=== PATIENT | male | born 1970 | race Caucasian/White ===

== ENCOUNTER 2016-08-16 04:06 | Emergency (ER) | payer OTHER ==
--- NOTE | 2016-08-16 05:35 | ED CLINICAL REPORT ---
Clinical Report - Physicians/Mid Levels Formerly [facility] [address] [place] [address] 08/16/2016 4:07 [id number] Ar[facility]- By private vehicle. Historian- patient. HISTORY OF PRESENT ILLNESS Chief Complaint: SORE THROAT. This started past several days and is still present (staying the same). It was abrupt in onset and has been constant but is not gone now. The illness is described as moderate. No difficulty breathing, chest discomfort or pain, fever or chills. He has had a sore throat and nasal congestion. Additional history - No known contact with a sick individual. No recent travel. (reports n/v/d as well). Similar symptoms previously: None. Recent medical care: Not recently seen/assessed. REVIEW OF SYSTEMS No skin rash. All systems otherwise negative, except as recorded above. PAST HISTORY See nurses notes. SOCIAL HISTORY Smoker- current status unknown. History of drug use: marijuana. No alcohol use. No recent travel. Is a local resident. ADDITIONAL NOTES The nursing notes have been reviewed. PHYSICAL EXAM Vital Signs: 08/16/2016 04:15 BP: 191/92. HR: 77. RR: 16. O2 saturation: 99%. Temp: 98.6 F. Blood pressure normal. Oxygen saturation normal. Appearance: Alert. No acute distress. Eyes: Pupils equal, round and reactive to light. Eyes normal inspection. ENT: Ears normal. Nose normal. Pharynx normal. Uvula midline. (no papilledema. Normal-appearing retinal vasculature.). Neck: Normal inspection. Neck supple. CVS: Normal heart rate and rhythm. Heart sounds normal. Pulses normal. Respiratory: No respiratory distress. Breath sounds normal. Abdomen: Soft and nontender. No organomegaly. Back: Normal inspection. Skin: Skin warm and dry. Normal skin color. No rash. Normal skin turgor. Extremities: Extremities exhibit normal ROM. No lower extremity edema. LABS, X-RAYS, AND EKG Laboratory Tests: Culture, Strep Screen: (DEVONTE: 08/16/2016 04:30) ( MsgRcvd 08/18/2016 08:27) Final results Test Result Flag Units (Reference) RAPID STREP SCREEN - THROAT CALLED TO: NA -- DATE: 08/16/16 NEGATIVE SCREEN: RAPID STREP SCREEN NEGATIVE; CONFIRMATION TO FOLLOW . DATE: 08/18/16 NO BETA STREP ISOLATED: NO BETA STREP ISOLATED . PROGRESS AND PROCEDURES Course of Care: the patient is a pleasant 45 -year-old male presenting for evaluation of sore throat, nausea, vomiting, and Symptoms at this time are likely viral in nature. We will obtain a rapid strep test for evaluation of possible streptococcal pharyngitis. Patient's abdominal exam is benign. Do not feel laboratory studies her CT scan/other imaging would be warranted at this time. patient is nontoxic and in no acute distress. Patient is agreeable to treatment plan. Patient's workup forrapid strep is noted to be negative. Had discussion with patient in regards to his workup here in the emergency department and possibly a contact in several days for the culture results. Patient expressed understanding of these instructions. Discussed with patient workup, diagnosis, home care, follow-up, and return precautions including medication. Cautions answered. The patient expressed understanding of these instructions and was agreeable to them. repeat examination continues to be benign. Do not feel patient needs to be admitted to the hospital or require further emergency department workup. Patient is a follow-up with his primary care doctor in regards to his hypertension. No signs of end organ damage. CLINICAL IMPRESSION 08/16/2016 04:15 BP: 191/92. HR: 77. RR: 16. O2 saturation: 99%. Temp: 98.6 F. Hypertensive. Oxygen saturation normal. Acute viral syndrome Essential hypertension. INSTRUCTIONS Warnings: GENERAL WARNINGS: Return or contact your physician immediately if your condition worsens or changes unexpectedly, if not improving as expected, or if other problems arise. Specifically return if pain, vomiting, bleeding, breathing difficulty or fever. Your Current Medications: CONTINUE TAKING THE FOLLOWING MEDICATIONS: Glargine Insulin. Losartan Potassium Oral. MetFORMIN HCl Oral. Prescription Medications: Phenergan w/ Codeine 10mg / 6.25mg per 5 mL: take 1-2 teaspoons as needed for cough. Dispense sixty (60) mL. No refill. Substitution is permissible. (at bedtime only) OTC Medications: Acetaminophen (available over the counter): take according to label instructions. Motrin (available over the counter): take according to label instructions. Claritin 10 mg (available over the counter): take 1 tablet orally every 12 hours as needed for congestion. Dispense twenty (20). No refill. Substitution is permissible. Follow-up: Return to the emergency department as needed. Follow up with your doctor in three days. Reason for referral: recheck today's concerns. Summary of care provided to patient via paper. Screening today revealed the patient's blood pressure to be in the normal range. The patient should follow up with a primary care provider for blood pressure management. Understanding of the discharge instructions verbalized by patient. (Electronically signed by Jeremiah Pinto Dr. 08/22/2016 23:22)
--- NOTE | 2016-08-16 05:35 | ED NURSING NOTES ---
Clinical Report - Nurses [facility] [address] [place] [address] 08/16/2016 4:07 Patient: RAMANA MCLEAN TRIAGE Triage time 0415. Acuity: LEVEL 3. Chief Complaint: NAUSEA, VOMITING and DIARRHEA. --04:21 Ricky Austin R.N. 04:15 08/16/16. BP: 191/92. HR: 77. RR: 16. O2 saturation: 99%. Temp: 98.6 F. Pain level now 0/10. --04:21 Ricky Austin R.N. Weight: 101.6 kg stated. Height/Length: 71 inches Per Patient. BMI: 31.3. --04:18 Ricky Austin R.N. Medications MetFORMIN HCl Oral. --04:16 Ricky Austin R.N. Losartan Potassium Oral. --04:16 Ricky Austin R.N. Glargine Insulin. --04:16 Ricky Austin R.N. Allergies No Known Drug Allergy. --04:17 Ricky Austin R.N. History Arrived by private vehicle. Historian: patient. Unaccompanied. Onset. (3 days ago). He has had nausea, vomiting and diarrhea. Last oral intake by patient was (about 4 hours ago). Treatment MEAT PUMPER: (cough drops). SOCIAL HX: Heavy tobacco smoker- 1 pack per day. History of heavy drug use: marijuana. FALL RISK ASSESSMENT: Fall risk assessment completed. No fall risk identified. NUTRITIONAL RISK ASSESSMENT: The nutritional risk assessment revealed no deficiencies. FUNCTIONAL ASSESSMENT: Functional assessment: no impairments noted. LEARNING NEEDS ASSESSMENT: The learning needs assessment revealed no barriers. SKIN INTEGRITY ASSESSMENT: Skin integrity risk assessment completed. No skin integrity risk identified. --04:21 Ricky Austin R.N. PROBLEMS: Gastritis. Abdominal Pain. Back Pain. Sinusitis. Bronchitis. Pharyngitis. Diabetes Mellitus. Hypertension. --04:17 Ricky Austin R.N. ADDITIONAL SURGERIES: Appendectomy. Back Surgery. Cholecystectomy. --04:17 Ricky Austin R.N. Interventions ID band on patient. --04:21 Ricky Austin R.N. PHYSICAL ASSESSMENT Ambulatory to room. GENERAL / NEURO / PSYCH: Alert. Oriented X 4. HEENT: Mucous membranes are pink. RESPIRATORY: Respirations not labored. Breath sounds within normal limits. CVS: Capillary refill less than 2 seconds. GI / : Abdomen soft and nontender. SKIN: Skin is warm and dry. --04:22 Ricky Austin R.N. NURSING PROGRESS NOTES Head of bed elevated. Reassurance given. Patient identifiers checked. Call light placed in reach. Bed placed in lowest position. Brakes of bed on. --: Ricky Austin R.N. DISPOSITION / DISCHARGE Departure time: 0550. Condition at departure: improved. No learning barriers present. Discharge instructions provided and reviewed with the patient. Reviewed warnings. Reviewed medication(s). Treatments reviewed. Reviewed diet. Patient verbalized understanding. Written instructions provided in Icelandic. The patient was discharged by the physician. He was discharged home and unaccompanied at time of discharge. He left the Emergency Department ambulatory and via private vehicle. Patient driving. --05:51 Ricky Austin R.N. 05:49 08/16/16. BP: 189/88. HR: 68. RR: 16. O2 saturation: 98%. Temp: 98.6 F. Pain level now 0/10. --05:51 Ricky Austin R.N. Locked/Released at 08/16/2016 5:51 by Ricky Austin R.N.
--- NOTE | 2016-08-16 05:35 | ED NURSING NOTES ---
Clinical Report - Nurses [facility] [address] [place] [address] 08/16/2016 4:07 Patient: RAMANA MCLEAN TRIAGE Triage time 0415. Acuity: LEVEL 3. Chief Complaint: NAUSEA, VOMITING and DIARRHEA. --04:21 Ricky Austin R.N. 04:15 08/16/16. BP: 191/92. HR: 77. RR: 16. O2 saturation: 99%. Temp: 98.6 F. Pain level now 0/10. --04:21 Ricky Austin R.N. Weight: 101.6 kg stated. Height/Length: 71 inches Per Patient. BMI: 31.3. --04:18 Ricky Austin R.N. Medications MetFORMIN HCl Oral. --04:16 Ricky Austin R.N. Losartan Potassium Oral. --04:16 Ricky Austin R.N. Glargine Insulin. --04:16 Ricky Austin R.N. Allergies No Known Drug Allergy. --04:17 Ricky Austin R.N. History Arrived by private vehicle. Historian: patient. Unaccompanied. Onset. (3 days ago). He has had nausea, vomiting and diarrhea. Last oral intake by patient was (about 4 hours ago). Treatment COMB FIXER: (cough drops). SOCIAL HX: Heavy tobacco smoker- 1 pack per day. History of heavy drug use: marijuana. FALL RISK ASSESSMENT: Fall risk assessment completed. No fall risk identified. NUTRITIONAL RISK ASSESSMENT: The nutritional risk assessment revealed no deficiencies. FUNCTIONAL ASSESSMENT: Functional assessment: no impairments noted. LEARNING NEEDS ASSESSMENT: The learning needs assessment revealed no barriers. SKIN INTEGRITY ASSESSMENT: Skin integrity risk assessment completed. No skin integrity risk identified. --04:21 Ricky Austin R.N. PROBLEMS: Gastritis. Abdominal Pain. Back Pain. Sinusitis. Bronchitis. Pharyngitis. Diabetes Mellitus. Hypertension. --04:17 Ricky Austin R.N. ADDITIONAL SURGERIES: Appendectomy. Back Surgery. Cholecystectomy. --04:17 Ricky Austin R.N. Interventions ID band on patient. --04:21 Ricky Austin R.N. PHYSICAL ASSESSMENT Ambulatory to room. GENERAL / NEURO / PSYCH: Alert. Oriented X 4. HEENT: Mucous membranes are pink. RESPIRATORY: Respirations not labored. Breath sounds within normal limits. CVS: Capillary refill less than 2 seconds. GI / : Abdomen soft and nontender. SKIN: Skin is warm and dry. --04:22 Ricky Austin R.N. NURSING PROGRESS NOTES Head of bed elevated. Reassurance given. Patient identifiers checked. Call light placed in reach. Bed placed in lowest position. Brakes of bed on. --: Ricky Austin R.N. DISPOSITION / DISCHARGE Departure time: 0550. Condition at departure: improved. No learning barriers present. Discharge instructions provided and reviewed with the patient. Reviewed warnings. Reviewed medication(s). Treatments reviewed. Reviewed diet. Patient verbalized understanding. Written instructions provided in Pashto. The patient was discharged by the physician. He was discharged home and unaccompanied at time of discharge. He left the Emergency Department ambulatory and via private vehicle. Patient driving. --05:51 Ricky Austin R.N. 05:49 08/16/16. BP: 189/88. HR: 68. RR: 16. O2 saturation: 98%. Temp: 98.6 F. Pain level now 0/10. --05:51 Ricky Austin R.N. Locked/Released at 08/16/2016 5:51 by Ricky Austin R.N.
--- NOTE | 2016-08-16 05:35 | ED ORDER SUMMARY ---
..... Patient: RAMANA MCLEAN OrderSheet [facility] VisitID: [id number] [address] [place] [address] 45y, M Registration Date/Time: 08/16/2016 ORDER SHEET Weight: 101.6 kg (stated) Allergies: No Known Drug Allergy GENERAL ORDERS: Culture, Strep Screen Urgent (05:07 08/16/2016 Kiko Becektt) (Ack 5:10 [facility] Horse Breaker) (5:10 [facility] Horse Breaker) MEDICATION ORDERS: IV FLUIDS: ORDER SHEET NOTES: [Electronically signed by Ricky Austin R.N. (05:51 08/16/2016)] [Electronically signed by Jeremiah Pinto Dr. (23:22 08/22/2016)] [Electronically locked/signed by Ricky Austin R.N. (05:51 08/16/2016)]
--- NOTE | 2016-08-16 05:35 | ED ORDER SUMMARY ---
..... Patient: RAMANA MCLEAN OrderSheet [facility] VisitID: [id number] [address] [place] [address] 45y, M Registration Date/Time: 08/16/2016 ORDER SHEET Weight: 101.6 kg (stated) Allergies: No Known Drug Allergy GENERAL ORDERS: Culture, Strep Screen Urgent (05:07 08/16/2016 Kiko Beckett) (Ack 5:10 [facility] Maintenance Equipment Operator) (5:10 [facility] ER Maintenance Equipment Operator) MEDICATION ORDERS: IV FLUIDS: ORDER SHEET NOTES: [Electronically signed by Ricky Austin R.N. (05:51 08/16/2016)] [Electronically signed by Jeremiah Pinto Dr. (23:22 08/22/2016)] [Electronically locked/signed by Ricky Austin R.N. (05:51 08/16/2016)]
--- NOTE | 2016-08-22 23:22 | ED MAR SUMMARY ---
..... Medication Administration Record [facility] [address] [place], [place] [id number] Patient: RAMANA MCLEAN Visit ID: [id number] 45y, M Weight: 101.6 kg Height/Length: 71 in BMI: 31.3 ALLERGIES: No Known Drug Allergy
--- NOTE | 2016-08-22 23:22 | ED MED RECONCILIATION SUMMARY ---
Patient: RAMANA MCLEAN Medication Reconciliation Report [facility] VisitID: [id number] [address] [place] [address] 45y, M Registration Date/Time: 08/16/2016 Weight: 101.6 kg Height/Length: 71 in. BMI: 31.3 ALLERGIES: No Known Drug Allergy The patient's Home Medications are listed below: CONTINUE TAKING THE FOLLOWING MEDICATIONS: Glargine Insulin Losartan Potassium Oral MetFORMIN HCl Oral The source(s) of the original Home Medication information: Not obtained. The following Medications were given to the patient in the Emergency Department: None. The following Medications were prescribed to the patient: Acetaminophen (available over the counter): take according to label instructions. -- Jeremiah Pinto Dr. Motrin (available over the counter): take according to label instructions. -- Jeremiah Pinto Dr. Phenergan w/ Codeine 10mg / 6.25mg per 5 mL: take 1-2 teaspoons as needed for cough. Dispense sixty (60) mL. No refill. Substitution is permissible.(at bedtime only) -- Jeremiah Pinto Dr. Claritin 10 mg (available over the counter): take 1 tablet orally every 12 hours as needed for congestion. Dispense twenty (20). No refill. Substitution is permissible. -- Jeremiah Pinto Dr.
--- NOTE | 2016-08-22 23:22 | ED DISCHARGE INSTRUCTIONS ---
Patient: RAMANA MCLEAN General Instructions [facility] VisitID: [id number] [place] [address] 45y, M Registration Date/Time: 08/16/2016 08/16/2016 04:15 BP: 191/92. HR: 77. RR: 16. O2 saturation: 99%. Temp: 98.6 F. Hypertensive. Oxygen saturation normal. Acute viral syndrome Essential hypertension. INSTRUCTIONS Warnings: GENERAL WARNINGS: Return or contact your physician immediately if your condition worsens or changes unexpectedly, if not improving as expected, or if other problems arise. Specifically return if pain, vomiting, bleeding, breathing difficulty or fever. Your Current Medications: CONTINUE TAKING THE FOLLOWING MEDICATIONS: Glargine Insulin. Losartan Potassium Oral. MetFORMIN HCl Oral. Prescription Medications: Phenergan w/ Codeine 10mg / 6.25mg per 5 mL: take 1-2 teaspoons as needed for cough. Dispense sixty (60) mL. No refill. Substitution is permissible. (at bedtime only) OTC Medications: Acetaminophen (available over the counter): take according to label instructions. Motrin (available over the counter): take according to label instructions. Claritin 10 mg (available over the counter): take 1 tablet orally every 12 hours as needed for congestion. Dispense twenty (20). No refill. Substitution is permissible. Follow-up: Return to the emergency department as needed. Follow up with your doctor in three days. Reason for referral: recheck today's concerns. Summary of care provided to patient via paper. Screening today revealed the patient's blood pressure to be in the normal range. The patient should follow up with a primary care provider for blood pressure management. Understanding of the discharge instructions verbalized by patient. ADDITIONAL INFORMATION Viral Syndrome (Adult) A viral illness may cause a number of symptoms. The symptoms depend on the part of the body that the virus affects. If it settles in the nose, throat, and lungs, it may cause cough, sore throat, congestion, and sometimes headache. If it settles in the stomach and intestinal tract, it may cause vomiting and diarrhea. Sometimes it causes vague symptoms like "aching all over," feeling tired, loss of appetite, or fever. A viral illness usually lasts1 to 2 weeks, but sometimes it lasts longer. In some cases, a more serious infection can look like a viral syndrome in the first few days of the illness. You may need anotherexam and additional teststo know the difference.Watch for the warning signs listed below. Home care Follow these guidelines for taking care of yourself at home: If symptoms are severe, rest at home for the first 2 to 3 days. Stay away from cigarette smoke - both your smoke and the smoke from others. You may useacetaminophen or ibuprofen for fever, muscle aching, and headache, unless another medicine was prescribed for this.If you have chronic liver or kidney disease or ever had a stomach ulcer or GI bleeding, talk with your doctor before using these medicinesNo one who is younger than 18 and ill with a fever should take aspirin. It may cause severe liver damage. Your appetite may be poor, so a light diet is fine. Avoid dehydration by drinking 8 to 12 8-ounce glasses of fluids each day. This may include water; orange juice; lemonade; apple, grape, and cranberry juice; clear fruit drinks; electrolyte replacement and sports drinks; and decaffeinated teas and coffee. If you have been diagnosed with a kidney disease, ask your doctor how much and what types of fluids you should drink to prevent dehydration. If you have kidney disease, drinking too much fluid can cause it build up in the your body and be dangerous to your health. Mskn-ddu-iibwkex remedies won't shorten the length of the illness but may be helpful forcough, sore throat; and nasal and sinus congestion. Don't use decongestants if you have high blood pressure. Follow-up care Follow up with your health care provider if you do not improve over the next week. When to seek medical care Get prompt medical attention if any of these occur: Cough with lots of colored sputum (mucus) or blood in your sputum Chest pain, shortness of breath, wheezing, or difficulty breathing Severe headache; face, neck, or ear pain Severe, constant pain in the lower right side of your belly (abdominal) Continued vomiting (cant keep liquids down) Frequent diarrhea (more than 5 times a day); blood (red or black color) or mucus in diarrhea Feeling weak, dizzy, or like you are going to faint Extreme thirst Fever of 100.4 F (38 C) oral or higher, not better with fever medication Convulsion High Blood Pressure -- To Be Confirmed [No Tx] Your blood pressure was higher today than normal. Sometimes anxiety or pain can cause a temporary rise in blood pressure that later returns to normal. If your blood pressure is high on one measurement, this does not mean that you have hypertension (a chronic illness). However, you must have your blood pressure measured again within the next few days to find out if its still high. A normal blood pressure is 120/80 or less. The first (top) number is the "systolic" pressure. The second (bottom) number is the "diastolic" pressure. Hypertension exists when either the top number is 140 or higher, OR the bottom number is 90 or higher on repeated measurements. Blood pressure in the range of 120-140 (systolic) or 80-89 (diastolic) is considered "pre-hypertension". This means your are at risk for getting hypertension. You should have regular blood pressure checks to be sure your blood pressure is not rising. Home Care: Measure your blood pressure on 3 different days and write down the results. This can be done at your doctor's office or this facility. Some pharmacies and grocery stores offer automated blood pressure machines for your use. Follow Up: If your blood pressure is "high" (over 120/80) on 2 out of 3 days, you will need to follow up with your doctor for further evaluation and treatment. DO NOT PUT THIS OFF! Untreated high blood pressure increases the risk for heart attack, also known as acute myocardial infarction, or AMI, and stroke. It is a treatable condition. Get Prompt Medical Attention if any of the following occur: Chest pain or shortness of breath Severe headache Throbbing or rushing sound in the ears Nosebleed Sudden severe abdominal pain Extreme drowsiness, confusion or fainting Dizziness or vertigo (dizziness with spinning sensation) Weakness of an arm or leg or one side of the face Difficulty with speech or vision Loratadine Oral tablet, extended release 24 hour What is this medicine? LORATADINE (martin AT a mindi) is an antihistamine. It helps to relieve sneezing, runny nose, and itchy, watery eyes. This medicine is used to treat the symptoms of allergies. It is also used to treat itchy skin rash and hives. How should I use this medicine? Take this medicine by mouth with a glass of water. Follow the directions on the label. You may take this medicine with food or on an empty stomach. Take your medicine at regular intervals. Do not take your medicine more often than directed. Talk to your administrative sales assistant regarding the use of this medicine in children. While this medicine may be used in children as young as 6 years for selected conditions, precautions do apply. What side effects may I notice from receiving this medicine? Side effects that you should report to your doctor or health primary care coordinator as soon as possible: allergic reactions like skin rash, itching or hives, swelling of the face, lips, or tongue breathing problems unusually restless or nervous Side effects that usually do not require medical attention (report to your doctor or health primary care coordinator if they continue or are bothersome): drowsiness dry or irritated mouth or throat headache What may interact with this medicine? other medicines for colds or allergies What if I miss a dose? If you miss a dose, take it as soon as you can. If it is almost time for your next dose, take only that dose. Do not take double or extra doses. Where should I keep my medicine? Keep out of the reach of children. Store at room temperature between 2 and 30 degrees C (36 and 86 degrees F). Protect from moisture. Throw away any unused medicine after the expiration date. What should I tell my health care provider before I take this medicine? They need to know if you have any of these conditions: asthma kidney disease liver disease an unusual or allergic reaction to loratadine, other antihistamines, other medicines, foods, dyes, or preservatives or trying to get breast-feeding What should I watch for while using this medicine? Tell your doctor or healthcare professional if your symptoms do not start to get better or if they get worse. Your mouth may get dry. Chewing sugarless gum or sucking hard candy, and drinking plenty of water may help. Contact your doctor if the problem does not go away or is severe. You may get drowsy or dizzy. Do not drive, use machinery, or do anything that needs mental alertness until you know how this medicine affects you. Do not stand or sit up quickly, especially if you are an older patient. This reduces the risk of dizzy or fainting spells. You have been given the following additional information: Viral Syndrome (Adult) Hypertension, To Be Confirmed Loratadine Oral tablet, extended release 24 hour (Electronically signed by Jeremiah Pinto Dr. 08/22/2016 23:22)
--- NOTE | 2016-08-22 23:22 | ED MAR SUMMARY ---
..... Medication Administration Record [facility] [address] [place], [place] [id number] Patient: RAMANA MCLEAN Visit ID: [id number] 45y, M Weight: 101.6 kg Height/Length: 71 in BMI: 31.3 ALLERGIES: No Known Drug Allergy
--- NOTE | 2016-08-22 23:22 | ED MED RECONCILIATION SUMMARY ---
Patient: RAMANA MCLEAN Medication Reconciliation Report [facility] VisitID: [id number] [address] [place] [address] 45y, M Registration Date/Time: 08/16/2016 Weight: 101.6 kg Height/Length: 71 in. BMI: 31.3 ALLERGIES: No Known Drug Allergy The patient's Home Medications are listed below: CONTINUE TAKING THE FOLLOWING MEDICATIONS: Glargine Insulin Losartan Potassium Oral MetFORMIN HCl Oral The source(s) of the original Home Medication information: Not obtained. The following Medications were given to the patient in the Emergency Department: None. The following Medications were prescribed to the patient: Acetaminophen (available over the counter): take according to label instructions. -- Jeremiah Pinto Dr. Motrin (available over the counter): take according to label instructions. -- Jeremiah Pinto Dr. Phenergan w/ Codeine 10mg / 6.25mg per 5 mL: take 1-2 teaspoons as needed for cough. Dispense sixty (60) mL. No refill. Substitution is permissible.(at bedtime only) -- Jeremiah Pinto Dr. Claritin 10 mg (available over the counter): take 1 tablet orally every 12 hours as needed for congestion. Dispense twenty (20). No refill. Substitution is permissible. -- Jeremiah Pinto Dr.
== END 2016-08-16 05:46 | disposition home or self-care (01) ==
LOC: ED SRH 04:06
DX: B34.9 Viral infection, unspecified (principal); I10 Essential (primary) hypertension; Z79.84 Long term (current) use of oral hypoglycemic drugs; Z79.899 Other long term (current) drug therapy
CPT/HCPCS: 90154; 90159